=== PATIENT | female | born 1960 | race Caucasian/White ===

== ENCOUNTER 2020-12-10 02:59 | Day surgery (SDC) | payer MEDICARE ==
[2020-12-10] VITALS (8 sets, daily range): BP systolic 118–135; BP diastolic 60–71
[~2020-12-10] VITALS: Ht 162.6 cm; Wt 49.9 kg
[2020-12-10] MEDS ORDERED: NICO14DI24 TOP (03:15)
[2020-12-10] MEDS ORDERED: LEXA1TAB PO (03:15)
[2020-12-10] MEDS ORDERED: PRIL20TA2 PO (03:15)
[2020-12-10] MEDS ORDERED: LYRI150C PO (03:15)
[2020-12-10] MEDS ORDERED: RISP0.5T21 PO (03:15)
[2020-12-10] MEDS ORDERED: ASPI81CH33 PO (03:15)
[2020-12-10] MEDS ORDERED: FIOR1CAP PO (03:15)
[2020-12-10] MEDS ORDERED: GABA-283 PO (03:15)
[2020-12-10] MEDS ORDERED: TRAZ-257 PO (03:15)
[2020-12-10] MEDS ORDERED: K-TA10TA PO (03:15)
[2020-12-10] MEDS ORDERED: METO37.5 PO (03:15)
[2020-12-10] MEDS ORDERED: ATOR40TA75 PO (03:15)
[2020-12-10] MEDS ORDERED: PROV108A INH (03:15)
[2020-12-10] MEDS ORDERED: SYMB16INH INH (03:15)
[2020-12-10] MEDS: COMBIVENT RESPIMAT 100-20MCG INHALER 4GM INH SCH ×3 (05:06→05:33)
[2020-12-10 05:09] LABS: BASO # 0.1 10^3/uL (0.0-0.2); BASO % 0.4 % (0.0-1.0); EOS # 0.2 10^3/uL (0.0-0.5); EOS % 1.8 % (0.0-3.0); HEMATOCRIT 31.8 % (36.0-47.0); HEMOGLOBIN 10.7 g/dl (12.0-15.5); LYMPH # 2.7 10^3/uL (1.5-5.0); LYMPH % 23.7 % (24.0-44.0); MEAN CORPUSCULAR HGB CONC 33.6 g/dl (32.0-36.5); MEAN CORPUSCULAR VOLUME 95.2 fl (80.0-96.0); MONO # 1.2 10^3/uL (0.0-0.8); MONO % 10.4 % (2.0-8.0); NEUTROPHILS # 7.1 10^3/uL (1.5-8.5); NEUTROPHILS % 63.3 % (36.0-66.0); PLATELET COUNT, AUTOMATED 250 10^3/uL (150-450); RED BLOOD COUNT 3.34 10^6/uL (4.00-5.40); WHITE BLOOD COUNT 11.2 10^3/uL (4.0-10.0)
[2020-12-10 05:33] LABS: RSV AMPLIFICATION NEGATIVE (NEGATIVE)
[2020-12-10 05:47] LABS: ALBUMIN 3.4 GM/DL (3.2-5.2); ALT/SGPT 21 U/L (12-78); BILIRUBIN,DIRECT < 0.1 MG/DL (0.0-0.2); BILIRUBIN,TOTAL 0.2 MG/DL (0.2-1.0); BLOOD UREA NITROGEN 11 MG/DL (7-18); CALCIUM LEVEL 9.1 MG/DL (8.8-10.2); CARBON DIOXIDE LEVEL 25 MEQ/L (21-32); CHLORIDE LEVEL 100 MEQ/L (98-107); CREATININE FOR GFR 1.29 MG/DL (0.55-1.30); GLOMERULAR FILTRATION RATE 44.9 (>45); GLUCOSE, FASTING 106 MG/DL (70-100); LIPASE 346 U/L (73-393); SODIUM LEVEL 133 MEQ/L (136-145)
[2020-12-10] MEDS ORDERED: ALBU8.5H INH (07:29)
[2020-12-10] MEDS ORDERED: BUTA-198 PO (07:29)
[2020-12-10] MEDS ORDERED: TOPR25TA PO (07:29)
[2020-12-10] MEDS ORDERED: GABA600T4 PO (07:29)
[2020-12-10] MEDS ORDERED: ASPI81TA26 PO (07:29)
[2020-12-10] MEDS ORDERED: POTA1TAB14 PO (07:33)
[2020-12-10] MEDS ORDERED: HOME MED LIST COMPLETE! XX SCH (07:35)
[2020-12-10] MEDS ORDERED: fentaNYL 100 MCG/2 ML INJECTION As Ordered ONE (08:10)
[2020-12-10] MEDS ORDERED: LIDOCAINE 2% 100MG/5ML SDV (FOR ANES.) As Ordered ONE (08:10)
[2020-12-10] MEDS ORDERED: MIDAZOLAM INJ 2MG/2ML VIAL (J2250 PER 1MG) As Ordered ONE (08:10)
[2020-12-10] MEDS ORDERED: ROCURONIUM BROMIDE 50 MG/5 ML VIAL As Ordered ONE (08:10)
[2020-12-10] MEDS ORDERED: propofoL 200 MG/20 ML VIAL As Ordered ONE (08:10)
[2020-12-10] MEDS ORDERED: SUCCINYLCHOLINE 100 MG/5 ML SYRINGE (J0330) As Ordered ONE (10:36)
[2020-12-10] MEDS ORDERED: ePHEDrine SULFATE 25 MG/5 ML(5MG/ML) SYRINGE As Ordered ONE ×2 (10:46→10:59)
[2020-12-10] MEDS ORDERED: PHENYLephrine 500MCG 5ML (100MCG/ML) SYRINGE As Ordered ONE (10:59)
[2020-12-10] MEDS ORDERED: SUGAMMADEX SODIUM 500 MG/5 ML VIAL (BRIDION) As Ordered ONE (11:05)
[2020-12-10] MEDS ORDERED: ONDANSETRON 4MG/2ML VIAL As Ordered ONE (11:06)
[2020-12-10] MEDS ORDERED: dexameTHASONE 4 MG/ML 1ML VIAL (J1100 PER 1MG) As Ordered ONE (11:06)
[2020-12-10] MEDS ORDERED: ONDANSETRON 4MG/2ML VIAL IV PRN ×2 (11:25→12:00)
[2020-12-10] MEDS ORDERED: ALBUTEROL 90 MCG/ACT 8GM HFA INHALER INH PRN (11:25)
[2020-12-10] MEDS: AMPICILLIN SOD/SULBACTAM SOD 3 GM in D5W MINI-BAG PLUS 100 ML IV SCH ×2 (11:49→17:19)
[2020-12-10] MEDS ORDERED: LR 1,000 ML IV SCH (12:00)
[2020-12-10] MEDS: KETOROLAC 30 MG/ML 1ML VIAL IV PRN ×2 (12:01→21:08)
[2020-12-10] MEDS: LR 1,000 ML IV SCH (13:32)
[2020-12-10] MEDS: FIORICET TAB PO PRN (15:24)
[2020-12-10] MEDS: NICOTINE 14 MG/24 HR TRANSDERMAL TOP SCH (15:25)
[2020-12-10] MEDS: SYMBICORT 160/4.5MCG INHALER 6GM INH SCH (19:31)
[2020-12-10] MEDS ORDERED: METOPROLOL SUCC *XL* 25MG TAB (TopROL *XL*) PO SCH (21:00)
[2020-12-10] MEDS: PANTOPRAZOLE 40MG VIAL (C9113 PER 1) IV SCH (21:06)
[2020-12-10] MEDS: PREGABALIN 75 MG CAP(LYRICA) PO SCH (21:06)
[2020-12-10] MEDS: GABAPENTIN 300 MG CAP PO SCH (21:06)
[2020-12-11] MEDS: AMPICILLIN SOD/SULBACTAM SOD 3 GM in D5W MINI-BAG PLUS 100 ML IV SCH ×2 (00:02→05:57)
[2020-12-11] MEDS: LR 1,000 ML IV SCH (00:02)
[2020-12-11 06:00] VITALS: BP 132/72
[2020-12-11] MEDS: SYMBICORT 160/4.5MCG INHALER 6GM INH SCH (07:34)
[2020-12-11] MEDS: PREGABALIN 75 MG CAP(LYRICA) PO SCH (08:58)
[2020-12-11] MEDS: GABAPENTIN 300 MG CAP PO SCH ×2 (08:58→14:08)
[2020-12-11] MEDS: PANTOPRAZOLE 40MG VIAL (C9113 PER 1) IV SCH (08:58)
[2020-12-11] MEDS: NICOTINE 14 MG/24 HR TRANSDERMAL TOP SCH (08:58)
[2020-12-11] MEDS: FIORICET TAB PO PRN (09:00)
[2020-12-11] MEDS ORDERED: ESOM1CAP5 PO (13:12)
[2020-12-12] MEDS ORDERED: DEXI30CA2 PO (15:53)
== END 2020-12-11 14:00 | disposition home or self-care (01) ==
LOC: M ED 02:59 → M SDC 08:22 → M MSPAV 11:28 → M SDC 12-11 14:00
PROVIDERS: ATTEND Surgery
DX: T18.128A Food in esophagus causing other injury, initial encounter (principal); Y92.89 Other specified places as the place of occurrence of the external cause; K91.71 Accidental puncture and laceration of a digestive system organ or structure during a digestive system procedure; K22.8 Other specified diseases of esophagus; J44.9 Chronic obstructive pulmonary disease, unspecified; I25.10 Atherosclerotic heart disease of native coronary artery without angina pectoris; I10 Essential (primary) hypertension; I25.2 Old myocardial infarction; K21.9 Gastro-esophageal reflux disease without esophagitis; R13.10 Dysphagia, unspecified; F41.9 Anxiety disorder, unspecified; F32.9 Major depressive disorder, single episode, unspecified; M54.9 Dorsalgia, unspecified; Z87.891 Personal history of nicotine dependence; Z79.899 Other long term (current) drug therapy; Z79.82 Long term (current) use of aspirin; Z79.51 Long term (current) use of inhaled steroids
CPT/HCPCS: 43247; 71045; 71046; 80048; 80076; 83690; 85025; 87631; 93005; 93041; 94640; 96365; 96375; 96376; 99285; C9113; J0330; J1100; J1885; J2250; J2370; J2405; J3010